=== PATIENT | male | born 1980 | race Caucasian/White ===

== ENCOUNTER 2019-04-25 11:31 | Emergency (ER) | payer SELFPAY ==
[~2019-04-25] VITALS: Ht 188 cm; Wt 104.3 kg
[~2019-04-25 11:31] MED LIST: ALBU90OI INH; AMOX500 PO; CODACE30 PO; CODGUAEL PO; CYCL10 PO; GUAI120S1 PO; HYDACE5 PO; NAPR220 PO; PRED20 PO
[2019-04-25] MEDS ORDERED: HYDCOR2.5C PR (12:19)
[2019-04-25] MEDS ORDERED: Colace250 MG PO (12:19)
== END 2019-04-25 12:41 | disposition home or self-care (01) ==
LOC: ER 11:31
DX: K62.5 Hemorrhage of anus and rectum (principal); F17.200 Nicotine dependence, unspecified, uncomplicated
CPT/HCPCS: 99283

== ENCOUNTER 2019-08-16 12:44 | Emergency (ER) | payer SELFPAY ==
[~2019-08-16] VITALS: Ht 188 cm; Wt 70.3 kg
[~2019-08-16 12:44] MED LIST changes: +Colace250 MG PO; +HYDCOR2.5C PR
== END 2019-08-16 14:09 | disposition home or self-care (01) ==
LOC: ER 12:44
DX: S83.91XA Sprain of unspecified site of right knee, initial encounter (principal); S93.401A Sprain of unspecified ligament of right ankle, initial encounter; F17.210 Nicotine dependence, cigarettes, uncomplicated; W10.9XXA Fall (on) (from) unspecified stairs and steps, initial encounter
CPT/HCPCS: 73590; 73630; 99283-25; A9270-GY

== ENCOUNTER 2020-05-20 10:12 | Emergency (ER) | payer SELFPAY ==
[~2020-05-20] VITALS: Ht 188 cm; Wt 111.1 kg
[2020-05-20] MEDS ORDERED: KEFLEX500 MG PO ×2 (11:08→11:27)
[2020-05-20] MEDS ORDERED: Bactrim Ds Tab1 EACH PO ×2 (11:08→11:27)
== END 2020-05-20 11:30 | disposition home or self-care (01) ==
LOC: ER 10:12
DX: L02.415 Cutaneous abscess of right lower limb (principal); L03.115 Cellulitis of right lower limb; F17.200 Nicotine dependence, unspecified, uncomplicated
CPT/HCPCS: 96372; 99281-25; A9270-GY; J1885